=== PATIENT | female | born 1980 | race African-American/Black ===

== ENCOUNTER 2017-03-01 19:52 | Emergency (ER) | payer MEDICAID ==
[~2017-03-01 19:52] MED LIST: MOTRIN-DPS800 MG PO; PRENATAL VIT1 TAB PO; TYLENOL #3 DPS1 TAB PO
--- NOTE | 2017-03-04 13:58 | ER ---
ADMIT: 03/01/2017 RM/LOC: ER [facility] MR#: [id number] [address] [address] TREY GARRIDO [address] [address] Emergency Room Report SEX: F AGE: 36 : 1980 DATE: 03/01/2017 ADDENDUM: CHIEF COMPLAINT: Nausea and vomiting. HISTORY OF PRESENT ILLNESS: This is a 36-year-old female who said her last menstrual period was December 23. She has had nausea and vomiting since, but worse recently, has epigastric pain. She is diabetic. COURSE IN THE EMERGENCY ROOM: CBC, CMP, urine, and lipase have been ordered. She is currently receiving a liter of fluids and Zofran. At this time, labs are pending. This patient is being left to Dr. Wahl. If everything turns out normal, she will go home. Push fluids, and follow up with primary care physician as needed. ALBA Lee / Bill Wahl MD / benignol JOB #: [id number] CC: Lance French MD, Attending Physician Desiree Chacon MD, Family Physician
--- NOTE | 2017-03-20 21:34 | ER ---
ADMIT: 03/01/2017 RM/LOC: ER [facility] MR#: [id number] 26[address] [facility] [address] TREY GARRDIO [address] [place] [id number] Emergency Room Report SEX: F AGE: 36 : 1980 DATE: 03/01/2017 ADDENDUM: A 36-year-old who presented to the Emergency Department, seen initially by ALBA Irizarry. Her lab work returns with a white count of 12.7. Electrolytes were significant for a potassium of 3.6 and glucose 121. Urinalysis was completely normal. The patient was being discharged with a diagnosis of and abdominal pain and vomiting. She got a liter of fluids and instructed to follow up with her follow up rep this week. Bill Wahl MD/ balwinder JOB #: [id number] CC: Lance French MD, Attending Physician Desiree Chacon MD, Family Physician
== END 2017-03-01 22:45 | disposition home or self-care (01) ==
LOC: ER 19:52
DX: O99.89 Other specified diseases and conditions complicating pregnancy, childbirth and the puerperium (principal); R10.13 Epigastric pain; Z3A.01 Less than 8 weeks gestation of pregnancy; Z79.899 Other long term (current) drug therapy

== ENCOUNTER 2017-03-12 15:55 | Emergency (ER) | payer MEDICAID ==
--- NOTE | 2017-03-18 16:13 | ER ---
ADMIT: 03/12/2017 RM/LOC: ER [facility] MR#: [id number] [address] [facility] [address] TREY GARRIDO [address] [address] Emergency Room Report SEX: F AGE: 36 : 1980 DATE: 03/12/2017 ADDENDUM: CHIEF COMPLAINT: Vomiting. HISTORY OF PRESENT ILLNESS: This is a 36-year-old female, who is . She has had epigastric pain. She vomits a few times every day. I did see her previously at another visit and gave her fluids at that time. She was discharged home. I will prescribe her some Reglan to go home with for nausea, have her follow up with her [employer] as needed. Her urine here was normal except for 5 red blood cells and her bedside glucose was 97. CLINICAL IMPRESSION: Discomfort of with vomiting. ALBA Lee / Keegan Fields MD / benignol JOB #: [id number] CC: Keegan Fields MD, Attending Physician UNKNOWN, Family Physician
== END 2017-03-12 18:30 | disposition home or self-care (01) ==
LOC: ER 15:55
DX: O21.9 Vomiting of pregnancy, unspecified (principal); O24.919 Unspecified diabetes mellitus in pregnancy, unspecified trimester

== ENCOUNTER → 2017-03-23 | Outpatient (CLI) | payer MEDICAID | END | disposition home or self-care (01) | LOC: RAD.S 09:00 | DX: R10.9 Unspecified abdominal pain (principal); R11.2 Nausea with vomiting, unspecified; K80.20 Calculus of gallbladder without cholecystitis without obstruction ==

== ENCOUNTER → 2017-03-31 | Outpatient (CLI) | payer MEDICAID | END | disposition home or self-care (01) | LOC: RAD.S 18:02 | DX: O09.522 Supervision of elderly multigravida, second trimester (principal); Z3A.10 10 weeks gestation of pregnancy ==

== ENCOUNTER 2017-04-10 22:42 | Emergency (ER) | payer MEDICAID ==
--- NOTE | 2017-04-18 01:20 | ER ---
ADMIT: 04/10/2017 RM/LOC: ER [facility] MR#: [id number] [address] [facility] [address] [place], [place] [address] TREY GARRIDO [address] [facility] [address] [place] [address] Emergency Room Report SEX: F AGE: 36 : 1980 DATE: 04/10/2017 See T-sheet for complete H and P. ADDENDUM: A 36-year-old female, who is G6, P4, AB1 with previous miscarriage spontaneously at 7 weeks, comes in with some vaginal bleeding that began about 2 hours ago. She is 12.5 weeks based on ultrasound. She has seen Dr. Chacon for her care to this point and had an ultrasound done a week and a half ago, which confirmed an intrauterine with no adnexal abnormalities with good heart tones at that time. She states she has not had any difficulty with this as far as bleeding, pain, or significant nausea until she had an episode of bleeding that began about 2 hours ago. She had blood that has partially soaked a couple pads since onset, but it is now improved by the time she got here. She has not had any pain with this or cramping. We attempted to get heart tones in the emergency department, but were unable to obtain any as she is slightly overweight. A pelvic exam was deferred as the patient is [place] and did not want a pelvic exam done as the only provider here was myself analia and another physician and were both males. We did review her chart history and shows that she is Rh positive, and we also performed an ultrasound in the Emergency Department, which reveals normal intrauterine with good heart tones and movement. There was a small amount of blood adjacent to the placenta, which measured a couple centimeters, and there was no active bleeding noted during the exam. The patient is discharged home in stable condition to follow up with Dr. Chacon's office and told she should return to the ER for any concerns or worsening pain, cramping, or bleeding. DIAGNOSES: 1. Threatened miscarriage. 2. Vaginal bleeding. 3. Intrauterine . Kushal Salguero MD/ balwinder JOB #: [id number] CC: Lance French MD, Attending Physician Desiree Chacon MD, Family Physician
== END 2017-04-11 00:30 | disposition home or self-care (01) ==
LOC: ER 22:42
DX: O20.0 Threatened abortion (principal); O24.311 Unspecified pre-existing diabetes mellitus in pregnancy, first trimester; E11.9 Type 2 diabetes mellitus without complications; Z3A.12 12 weeks gestation of pregnancy; Z79.899 Other long term (current) drug therapy